=== PATIENT | male | born 1960 | race Caucasian/White ===

== ENCOUNTER 2016-12-24 21:31 | Inpatient (IN) | payer OTHER ==
[~2016-12-24] VITALS: Ht 188 cm; Wt 127.0 kg
[~2016-12-24 21:31] MED LIST: ACID REDUCER 1150 MG PO; ALEVE220 MG PO; ALIGN4 MG PO; AMLODIPINE-BEN1 EAC3 PO; ATENOLOL50 MG PO; BENTYL10 MG PO; CIPRO500 MG PO; CLARITIN10 M3 PO; CYMBALTA60 MG PO; ELMIRON100 MG PO; HYDROCHLOROTH12.5 M3 PO; IMODIUM PO; IRON325 MG PO; NEURONTIN300 MG PO; NEXIUM40 MG PO; OMEPRAZOLE40 M1 PO; OXYBUTYNIN CHLO10 MG PO; OXYCODONE-APAP1 EACH PO; PROAIR HFA8.5 GM IH; SYNTHROID150 MCG PO; TRAZODONE HCL50 MG PO; VENTOLIN HFA18 GM IH; VITAMIN B12-FO1 EACH PO; VITAMIN D32000 UNI1 PO; VITAMIN D35000 UNIT PO; ZOLOFT50 MG PO
[2016-12-25 09:33] VITALS: BP 133/67
[2016-12-25 14:41] LABS: HEMATOCRIT 34.2 % (38.0-50.0); MCV 90.7 FL (86-99)
[2016-12-25 17:45] LABS: HEMATOCRIT 33.4 % (38.0-50.0)
[2016-12-25 20:10] VITALS: BP 102/52
[2016-12-26] VITALS (7 sets, daily range): BP systolic 108–130; BP diastolic 56–74
[2016-12-26 06:55] LABS: MCV 92.2 FL (86-99)
[2016-12-27 00:53] VITALS: BP 117/64
[2016-12-27 05:55] LABS: HEMATOCRIT 28.7 % (38.0-50.0); MCV 91.4 FL (86-99)
[2016-12-27 06:26] LABS: ANION GAP 4 MEQ/L (2-14); CHLORIDE 107 MEQ/L (99-109); GFR ESTIMATE (CALCULATED) > 59 mL/min/; GLUCOSE 113 mg/dL (70-99); POTASSIUM 3.7 MEQ/L (3.7-5.4); SAMPLE HEMOLYSIS CHECK 0; SAMPLE ICTERIC CHECK 0; SAMPLE LIPEMIA CHECK 0; SODIUM 140 MEQ/L (136-147); UREA NITROGEN (BUN) 10 mg/dL (9-23)
[2016-12-27 08:40] VITALS: BP 127/65
[2016-12-27 16:48] VITALS: BP 134/70
[2016-12-27 20:16] VITALS: BP 131/65
[2016-12-27 23:26] VITALS: BP 134/75
[2016-12-28 04:41] VITALS: BP 133/67
[2016-12-28 07:40] VITALS: BP 129/65
[2016-12-28 11:25] VITALS: BP 122/62
[2016-12-28] MEDS ORDERED: SEPTRA DS TABL1 EACH PO (11:29)
[2016-12-28] MEDS ORDERED: PERCOCET 5/31 TABLET PO (11:30)
== END 2016-12-28 14:24 | disposition home or self-care (01) | DRG 707 ==
LOC: ENRESERV 21:31 → 5EAST 12-25 09:01 → 2SOUTH 12-25 09:01 → ENRESERV 12-25 12:42 → 2SOUTH 12-25 13:11 → 5EAST 12-25 16:48
PROVIDERS: Nurse Anesthetist, Certified Registered; Urology
DX: C61 Malignant neoplasm of prostate (principal); N13.8 Other obstructive and reflux uropathy; I10 Essential (primary) hypertension; Z87.442 Personal history of urinary calculi; E03.9 Hypothyroidism, unspecified; E78.5 Hyperlipidemia, unspecified; M54.9 Dorsalgia, unspecified; Z82.49 Family history of ischemic heart disease and other diseases of the circulatory system; Z82.0 Family history of epilepsy and other diseases of the nervous system; Z80.8 Family history of malignant neoplasm of other organs or systems; R31.29 Other microscopic hematuria; N40.1 Benign prostatic hyperplasia with lower urinary tract symptoms; Z68.37 Body mass index [BMI] 37.0-37.9, adult; E66.9 Obesity, unspecified
CPT/HCPCS: 36415; 80048; 85014; 85018; 85025; 86900; 86901; 86920; 88305; 88309; 94799; 99202; J0131; J0330; J0690; J1170; J1885; J2250; J2270; J2405; J2710; J2765; J3010; J7120; P9045